=== PATIENT | female | born 1965 | race American Indian/Alaskan Native ===

== ENCOUNTER 2017-03-25 15:12 | Emergency (ER) | payer MEDICARE ==
--- NOTE | 2017-03-25 15:22 | Emergency Department Report ---
Chief Complaint: Upper Respiratory Infection Stated Complaint: FREQUENT URINATION/COUGH Time Seen by Provider: 03/25/17 15:17 - HPI History of Present Illness: PT c/o cough x 3 weeks. + urinary frequency - ROS Review of Systems: - nausea or vomiting + cough - dysuria - fever - Exam Physical Exam: PT looks well, non toxic no acute distress in triage MSE screening note: Focused history and physical exam performed. Due to findings the following was ordered: ED Disposition for MSE Condition: Stable
[2017-03-25 16:21] LABS: Bilirubin,Urine NEG (Negative); Blood,Urine NEG (Negative); Ketones,Urine NEG (Negative); Leukocyte Esterase,Urine NEG (Negative); Mucus,Urine FEW /HPF; Nitrite,Urine NEG (Negative); Protein,Urine <15 mg/dL mg/dL (Negative); RBC,Urine < 1.0 /HPF (0.0-6.0); Urobilinogen,Urine < 2.0 mg/dL (<2.0)
[2017-03-25] MEDS ORDERED: CATAPRES PO ONE (18:22)
[2017-03-25] MEDS ORDERED: TYLENOL #3 PO ONE (18:41)
--- NOTE | 2017-03-25 19:03 | XRay Report ---
FINAL REPORT EXAM: XR CHEST ROUTINE 2V HISTORY: cough x 3 weeks TECHNIQUE: Two view chest PA and lateral PRIORS: None. FINDINGS: Cardiac and mediastinal contours are unremarkable. No focal pulmonary infiltrate is identified. No pleural fluid collection seen. Pulmonary vasculature is unremarkable. IMPRESSION: Negative two-view chest
[2017-03-25 19:26] VITALS: BP 153/74
--- NOTE | 2017-03-25 23:19 | Emergency Department Report ---
Entered by MARIA T ALCAZAR, acting as scribe for JUAQUIN LEWIS PAC. - General Chief Complaint: Upper Respiratory Infection Stated Complaint: FREQUENT URINATION/COUGH Time Seen by Provider: 03/25/17 15:17 Source: patient Mode of arrival: Ambulatory Limitations: No Limitations - History of Present Illness Initial Comments: 51 y/o female with a PMHx of HTN, GERD, and Chrohn's disease presents to the ED c/o a dry cough with phlegm that began 3 weeks ago. Aggravated with deep breaths and talking, and alleviated with nothing. Denies fever, chills, congestion, rhinorrhea, sore throat, headache, dizziness, cardiac chest pain, and SOB. Denies PMHx of bronchitis and pneumonia. Denies any sick contacts. Denies any recent long travels. Notes her previously prescribed GERD medication usually relieves her symptoms, but reports the medication has not work within the last week. Patient secondary also reports urinary frequency, but she denies blurry vision, numbness, tingling, dysuria, abdominal pain, nausea, vomiting, and back pain. Denies PMHx of diabetes mellitus. Notes she was previously diagnosed with borderline diabetes. Patient states she had an urinary tract infection before and states this episode of urinary frequency does not feel similar to her past UTIs. Denies tobacco use. Allergic to metoclopramide HCl. MD Complaint: cough Onset/Timin -: week(s) Severity: mild Severity scale (0 -10): 3 Quality: burning Consistency: constant Improves With: nothing Worsens With: deep breaths Associated Symptoms: denies other symptoms, cough. denies: fever, chills, myalgias, diaphoresis, headache, rhinorrhea, nasal congestion, sore throat, stiff neck, chest pain, shortness of breath, abdominal pain, nausea, vomiting, diarrhea, dysuria, rash, confusion, right sweats, weight loss, epistaxis, hoarseness, ear pain Treatments Prior to Arrival: none - Related Data Previous Rx's Medication Instructions Recorded Last Taken Type Famotidine [Pepcid] 20 mg PO BID #60 tablet 04/16/14 Unknown Rx HYDROcodone/APAP 10-325 [[place] 1 each PO Q8H PRN #30 tablet 04/16/14 Unknown Rx 10-325 mg TAB] Mesalamine [Pentasa] 1,000 mg PO QID 30 Days 04/16/14 Unknown Rx Metoclopramide HCl [Reglan] 10 mg PO TID PRN #30 tablet 04/16/14 Unknown Rx Prednisone [Prednisone 5 mg (6-Day 5 mg PO .TAPER #1 tab.ds.pk 04/16/14 Unknown Rx Pack, 21 Tabs)] ALBUTEROL Inhaler [ProAir HFA 2 puff IH QID PRN #1 inhalation 03/05/15 Unknown Rx Inhaler] Acetamin/Codeine 120-12Mg/5 ml 5 ml PO TID PRN #40 ml 03/05/15 Unknown Rx [Tylenol/Codeine] Ibuprofen [Motrin 800 MG tab] 800 mg PO Q8HR PRN #30 tablet 03/05/15 Unknown Rx Prednisone [predniSONE 10 mg 10 mg PO .TAPER #1 tab.ds.pk 03/05/15 Unknown Rx (6-Day Pack, 21 Tabs)] Clindamycin [Clindamycin CAP] 300 mg PO Q8H #30 cap 03/14/16 Unknown Rx HYDROcodone/APAP 5-325 [[place] 1 each PO Q6HR PRN #12 tablet 03/14/16 Unknown Rx 5/325] Hydrochlorothiazide [HCTZ] 25 mg PO QDAY #30 tablet 07/03/16 Unknown Rx Ibuprofen [Motrin 800 MG tab] 800 mg PO Q8HR PRN #30 tablet 07/03/16 Unknown Rx Losartan [Cozaar] 50 mg PO QDAY #30 tablet 07/03/16 Unknown Rx Nitrofurantoin [place]/M-Cryst 100 mg PO Q12HR #10 capsule 07/03/16 Unknown Rx [Macrobid CAP] metroNIDAZOLE [Flagyl] 500 mg PO Q12HR #14 tab 07/03/16 Unknown Rx Azithromycin [Zithromax Z-ETHAN] 250 mg PO DAILY #6 tablet 03/25/17 Unknown Rx Benzonatate [Tessalon Perles] 100 mg PO Q8HR PRN #15 capsule 03/25/17 Unknown Rx Allergies Allergy/AdvReac Type Severity Reaction Status Date / Time metoclopramide HCl AdvReac "MANIC Verified 03/25/17 15:28 [From Reglan] EPISODE" ED Review of Systems Comment: All other systems reviewed and negative Constitutional: denies: chills, fever Eyes: denies: eye pain, eye discharge, vision change ENT: denies: ear pain, throat pain Respiratory: cough. denies: orthopnea, shortness of breath, SOB with exertion, SOB at rest, stridor, wheezing Cardiovascular: denies: chest pain, palpitations, dyspnea on exertion, orthopnea , edema, syncope, paroxysmal nocturnal dyspnea Endocrine: no symptoms reported Gastrointestinal: denies: abdominal pain, nausea, vomiting, diarrhea Genitourinary: frequency. denies: urgency, dysuria, hematuria, discharge, abnormal menses, dyspareunia Musculoskeletal: denies: back pain, joint swelling, arthralgia Skin: denies: rash, lesions Neurological: denies: headache, weakness, numbness, paresthesias Psychiatric: denies: anxiety, depression Hematological/Lymphatic: denies: easy bleeding, easy bruising ED Past Medical Hx - Past Medical History Previous Medical History?: Yes Hx Hypertension: Yes Hx GERD: Yes Additional medical history: CROHNS - Surgical History Past Surgical History?: Yes Hx Cholecystectomy: Yes (1986) Hx Appendectomy: Yes Additional Surgical History: Partial hysterectomy 2004. Exploratory laparotomy for Crohn's 1987. CERVICAL FUSION 2001 - Family History Family history: no significant - Social History Smoking Status: Never Smoker Substance Use Type: None - Medications Home Medications: Home Medications Medication Instructions Recorded Confirmed Last Taken Type Famotidine [Pepcid] 20 mg PO BID #60 tablet 04/16/14 Unknown Rx HYDROcodone/APAP 10-325 [[place] 1 each PO Q8H PRN #30 tablet 04/16/14 Unknown Rx 10-325 mg TAB] Mesalamine [Pentasa] 1,000 mg PO QID 30 Days 04/16/14 Unknown Rx Metoclopramide HCl [Reglan] 10 mg PO TID PRN #30 tablet 04/16/14 Unknown Rx Prednisone [Prednisone 5 mg (6-Day 5 mg PO .TAPER #1 tab.ds.pk 04/16/14 Unknown Rx Pack, 21 Tabs)] ALBUTEROL Inhaler [ProAir HFA 2 puff IH QID PRN #1 inhalation 03/05/15 Unknown Rx Inhaler] Acetamin/Codeine 120-12Mg/5 ml 5 ml PO TID PRN #40 ml 03/05/15 Unknown Rx [Tylenol/Codeine] Ibuprofen [Motrin 800 MG tab] 800 mg PO Q8HR PRN #30 tablet 03/05/15 Unknown Rx Prednisone [predniSONE 10 mg 10 mg PO .TAPER #1 tab.ds.pk 03/05/15 Unknown Rx (6-Day Pack, 21 Tabs)] Clindamycin [Clindamycin CAP] 300 mg PO Q8H #30 cap 03/14/16 Unknown Rx HYDROcodone/APAP 5-325 [[place] 1 each PO Q6HR PRN #12 tablet 03/14/16 Unknown Rx 5/325] Hydrochlorothiazide [HCTZ] 25 mg PO QDAY #30 tablet 07/03/16 Unknown Rx Ibuprofen [Motrin 800 MG tab] 800 mg PO Q8HR PRN #30 tablet 07/03/16 Unknown Rx Losartan [Cozaar] 50 mg PO QDAY #30 tablet 07/03/16 Unknown Rx Nitrofurantoin [place]/M-Cryst 100 mg PO Q12HR #10 capsule 07/03/16 Unknown Rx [Macrobid CAP] metroNIDAZOLE [Flagyl] 500 mg PO Q12HR #14 tab 07/03/16 Unknown Rx Azithromycin [Zithromax Z-ETHAN] 250 mg PO DAILY #6 tablet 03/25/17 Unknown Rx Benzonatate [Tessalon Perles] 100 mg PO Q8HR PRN #15 capsule 03/25/17 Unknown Rx ED Physical Exam - General Limitations: No Limitations General appearance: alert, in no apparent distress - Head Head exam: Present: atraumatic, normocephalic - Eye Eye exam: Present: normal appearance, PERRL, EOMI Pupils: Present: normal accommodation - ENT ENT exam: Present: normal exam, normal orophraynx, mucous membranes moist, TM's normal bilaterally, normal external ear exam - Neck Neck exam: Present: normal inspection, full ROM. Absent: tenderness, meningismus, lymphadenopathy, thyromegaly - Respiratory Respiratory exam: Present: normal lung sounds bilaterally (intermittent coughing noted on examination). Absent: respiratory distress, wheezes, rales, rhonchi, stridor, chest wall tenderness, accessory muscle use, decreased breath sounds, prolonged expiratory - Cardiovascular Cardiovascular Exam: Present: regular rate, normal rhythm, normal heart sounds. Absent: systolic murmur, diastolic murmur, rubs, gallop - GI/Abdominal GI/Abdominal exam: Present: soft, normal bowel sounds. Absent: distended, tenderness, guarding, rebound, rigid - Extremities Exam Extremities exam: Present: normal inspection, full ROM, normal capillary refill. Absent: tenderness, pedal edema, joint swelling, calf tenderness - Back Exam Back exam: Present: normal inspection, full ROM - Neurological Exam Neurological exam: Present: alert, oriented X3, normal gait - Expanded Neurological Exam Expanded Sensory exam: Upper Extremity Light Touch: Normal, Upper Extremity Pin Prick: Normal, Upper Extremity Temperature: Normal, UE 2 Point Discrimination: Normal, Lower Extremity Light Touch: Normal, Lower Extremity Pin Prick: Normal, Lower Extremity Temperature: Normal, LE 2 Point Discrimination: Normal Motor strength exam: RUE: 5, LUE: 5, RLE: 5, LLE: 5 Best Eye Response (Oscar): (4) open spontaneously Best Motor Response (Oscar): (6) obeys commands Best Verbal Response (D[place]ton): (5) oriented Dalton Total: 15 - Psychiatric Psychiatric exam: Present: normal affect, normal mood - Skin Skin exam: Present: warm, dry, intact. Absent: rash ED Course Vital Signs 03/25/17 03/25/17 03/25/17 15:18 18:14 18:34 Temperature 99.4 F Pulse Rate 89 74 74 Respiratory 17 16 Rate Blood Pressure 158/106 187/109 Blood Pressure 187/107 [Left] O2 Sat by Pulse 100 98 Oximetry 03/25/17 19:25 Temperature Pulse Rate 72 Respiratory 18 Rate Blood Pressure Blood Pressure 153/74 [Left] O2 Sat by Pulse 100 Oximetry ED Medical Decision Making - Medical Decision Making Pt was presenting with 3 weeks of chronic cough, pt has a long hx of gerd and has been on antireflux medications for years, she states that she was called in ranitidine 1.5 weeks ago without any improvement. Pt denied any chest pain, SOB , fever, or chills at this time. No hx of asthma or COPD. CXR was unremarkable , UA was unremarkable. Blood glucose was slightly elevated given that pt is borderline DM, pt told to f/u with PCP for 3 month evaluation and blood work. Pt was given clonidine 0.1 mg to help lower BP and was lowered in ER, no dizziness, blurried vision at this time. I will treat as bronchitis with doxy and tessalon arabella. Encouraged PCP follow-up in the next day for further BP management--- discharged with 157/74, in stable condition. ED Disposition Clinical Impression: Bronchitis, Pre-diabetes Hypertension Qualifiers: Hypertension type: essential hypertension Qualified Code(s): I10 - Essential ( primary) hypertension Disposition: DC- TO HOME OR SELFCARE Is pt being admited?: No Does the pt Need Aspirin: No Condition: Stable Instructions: Chronic Bronchitis (ED), Hypertension (ED) Additional Instructions: Pt instructed to take medications as given to her today. Please be advised that cough suppressant may cause drowsiness. Please follow-up with your PCP this week to further control your BP, also the cause of your frequency of urination may be from the prediabetes please go see the PCP this week. Return to the ED immediately if any chest pain, fever, chills, SOB or acutely worsening symptoms. Prescriptions: Azithromycin [Zithromax Z-ETHAN] 250 mg PO DAILY #6 tablet Benzonatate [Tessalon Perles] 100 mg PO Q8HR PRN #15 capsule PRN Reason: cough Referrals: BRENDA TAVERAS MD [Primary Care Provider] - 3-5 Days [facility] [Outside] - 3-[address] [facility] [Outside] - 3-5 Days Forms: Work/School Release Form(ED) Time of Disposition: 20:10 This documentation as recorded by the OTTONIEL obrien JASMINE,accurately reflects the service I personally performed and the decisions made by ,JUAQUIN LEWIS, PAC.
== END 2017-03-25 20:25 | disposition home or self-care (01) ==
LOC: ED 15:12
DX: J40 Bronchitis, not specified as acute or chronic (principal); I10 Essential (primary) hypertension; K21.9 Gastro-esophageal reflux disease without esophagitis; K50.90 Crohn's disease, unspecified, without complications
CPT/HCPCS: 71020; 81001; 82962

== ENCOUNTER 2017-12-17 19:28 | Emergency (ER) | payer MEDICARE ==
[2017-12-17] MEDS ORDERED: ASPIRIN PO ONE (19:58)
[2017-12-17 21:30] LABS: Basophils # (Auto) 0.1 K/mm3 (0.0-0.1); Basophils % (Auto) 0.9 % (0.0-1.8); Eosinophils # (Auto) 0.2 K/mm3 (0.0-0.4); Eosinophils % (Auto) 3.2 % (0.0-4.3); Hematocrit 39.2 % (30.3-42.9); Hemoglobin 13.2 gm/dl (10.1-14.3); Lymphocytes # (Auto) 2.8 K/mm3 (1.2-5.4); Lymphocytes % (Auto) 46.1 % (13.4-35.0); Mean Corpuscular HGB Conc 34 % (30-34); Mean Corpuscular Hemoglobin 28 pg (28-32); Mean Corpuscular Volume 84 fl (79-97); Monocytes # (Auto) 0.4 K/mm3 (0.0-0.8); Monocytes % (Auto) 7.3 % (0.0-7.3); Platelet Count 248 K/mm3 (140-440); Red Blood Count 4.65 M/mm3 (3.65-5.03); Red Cell Distribution Width 13.8 % (13.2-15.2)
[2017-12-17 21:39] LABS: BUN/Creatinine Ratio 10; Blood Urea Nitrogen 10 mg/dL (7-17); Calcium 9.1 mg/dL (8.4-10.2); Hemolysis Index 4
--- NOTE | 2017-12-18 02:32 | Emergency Department Report ---
ED Chest Pain HPI - General Chief Complaint: Chest Pain Stated Complaint: CHEST PAIN, ABD PAIN, BACK PAIN Time Seen by Provider: 12/18/17 02:32 Source: patient Mode of arrival: Ambulatory Limitations: No Limitations - History of Present Illness Initial Comments: Patient complain the chest which has been going on for over a week and also upper abdominal pain. Complaint: chest pain -: Gradual, week(s) (2) Onset: during rest Pain Location: substernal Pain Radiation: none Severity: moderate Severity scale (0 -10): 5 Quality: sharp Consistency: intermittent Improves With: nothing Worsens With: nothing re: denies: nausea, vomting Other Symptoms: denies: cough Treatments Prior to Arrival: none Aspirin use within the Past 7 Days: (1) Yes - Related Data Previous Rx's Medication Instructions Recorded Last Taken Type Famotidine [Pepcid] 20 mg PO BID #60 tablet 04/16/14 Unknown Rx HYDROcodone/APAP 10-325 [[place] 1 each PO Q8H PRN #30 tablet 04/16/14 Unknown Rx 10-325 mg TAB] Mesalamine [Pentasa] 1,000 mg PO QID 30 Days capsule.er 04/16/14 Unknown Rx Metoclopramide HCl [Reglan] 10 mg PO TID PRN #30 tablet 04/16/14 Unknown Rx Prednisone [Prednisone 5 mg (6-Day 5 mg PO .TAPER #1 tab.ds.pk 04/16/14 Unknown Rx Pack, 21 Tabs)] ALBUTEROL Inhaler [ProAir HFA 2 puff IH QID PRN #1 inhalation 03/05/15 Unknown Rx Inhaler] Acetamin/Codeine 120-12Mg/5 ml 5 ml PO TID PRN #40 ml 03/05/15 Unknown Rx [Tylenol/Codeine] Ibuprofen [Motrin 800 MG tab] 800 mg PO Q8HR PRN #30 tablet 03/05/15 Unknown Rx Prednisone [predniSONE 10 mg 10 mg PO .TAPER #1 tab.ds.pk 03/05/15 Unknown Rx (6-Day Pack, 21 Tabs)] Clindamycin [Clindamycin CAP] 300 mg PO Q8H #30 cap 03/14/16 Unknown Rx HYDROcodone/APAP 5-325 [[place] 1 each PO Q6HR PRN #12 tablet 08/24/16 Unknown Rx 5/325] Hydrochlorothiazide [HCTZ] 25 mg PO QDAY #30 tablet 07/03/16 Unknown Rx Ibuprofen [Motrin 800 MG tab] 800 mg PO Q8HR PRN #30 tablet 07/03/16 Unknown Rx Losartan [Cozaar] 50 mg PO QDAY #30 tablet 07/03/16 Unknown Rx Nitrofurantoin [place]/M-Cryst 100 mg PO Q12HR #10 capsule 07/03/16 Unknown Rx [Macrobid CAP] metroNIDAZOLE [Flagyl] 500 mg PO Q12HR #14 tab 07/03/16 Unknown Rx Azithromycin [Zithromax Z-ETHAN] 250 mg PO DAILY #6 tablet 03/25/17 Unknown Rx Benzonatate [Tessalon Perles] 100 mg PO Q8HR PRN #15 capsule 03/25/17 Unknown Rx Aspirin [Aspirin BABY CHEW TAB] 81 mg PO QDAY 30 Days #30 tab.chew 12/18/17 Unknown Rx Clonidine HCl [Kapvay] 0.1 mg PO BID #60 tab.er.12h 12/18/17 Unknown Rx Allergies Allergy/AdvReac Type Severity Reaction Status Date / Time metoclopramide HCl AdvReac "MANIC Verified 03/25/17 15:28 [From Reglan] EPISODE" Heart Score - HEART Score History: Slightly suspicious EKG: Non-specific Age: 45-65 Risk factors: 1-2 risk factors Troponin: 1-3x normal limit HEART Score: 4 - Critical Actions Critical Actions: 4-6 pts:12-16.6% risk of adverse cardiac event. Should be admitted ED Review of Systems ROS: Stated complaint: CHEST PAIN, ABD PAIN, BACK PAIN Other details as noted in HPI Comment: All other systems reviewed and negative Constitutional: denies: chills, fever Eyes: denies: eye pain ENT: denies: ear pain, dental pain Respiratory: denies: cough, shortness of breath Cardiovascular: chest pain. denies: palpitations Endocrine: no symptoms reported Gastrointestinal: abdominal pain. denies: nausea, vomiting, diarrhea Genitourinary: denies: urgency, dysuria, frequency Musculoskeletal: denies: back pain, joint swelling Skin: denies: lesions, change in color Neurological: denies: headache, weakness Psychiatric: denies: anxiety, depression Hematological/Lymphatic: denies: easy bleeding, easy bruising ED Past Medical Hx - Past Medical History Hx Hypertension: Yes Hx GERD: Yes Additional medical history: CROHNS - Surgical History Hx Cholecystectomy: Yes (1986) Hx Appendectomy: Yes Additional Surgical History: Partial hysterectomy 2004. Exploratory laparotomy for Crohn's 1987. CERVICAL FUSION 2001 - Social History Smoking Status: Never Smoker Substance Use Type: None - Medications Home Medications: Home Medications Medication Instructions Recorded Confirmed Last Taken Type Famotidine [Pepcid] 20 mg PO BID #60 tablet 04/16/14 Unknown Rx HYDROcodone/APAP 10-325 [[place] 1 each PO Q8H PRN #30 tablet 04/16/14 Unknown Rx 10-325 mg TAB] Mesalamine [Pentasa] 1,000 mg PO QID 30 Days capsule.er 04/16/14 Unknown Rx Metoclopramide HCl [Reglan] 10 mg PO TID PRN #30 tablet 04/16/14 Unknown Rx Prednisone [Prednisone 5 mg (6-Day 5 mg PO .TAPER #1 tab.ds.pk 04/16/14 Unknown Rx Pack, 21 Tabs)] ALBUTEROL Inhaler [ProAir HFA 2 puff IH QID PRN #1 inhalation 03/05/15 Unknown Rx Inhaler] Acetamin/Codeine 120-12Mg/5 ml 5 ml PO TID PRN #40 ml 03/05/15 Unknown Rx [Tylenol/Codeine] Ibuprofen [Motrin 800 MG tab] 800 mg PO Q8HR PRN #30 tablet 03/05/15 Unknown Rx Prednisone [predniSONE 10 mg 10 mg PO .TAPER #1 tab.ds.pk 03/05/15 Unknown Rx (6-Day Pack, 21 Tabs)] Clindamycin [Clindamycin CAP] 300 mg PO Q8H #30 cap 03/14/16 Unknown Rx HYDROcodone/APAP 5-325 [[place] 1 each PO Q6HR PRN #12 tablet 03/14/16 Unknown Rx 5/325] Hydrochlorothiazide [HCTZ] 25 mg PO QDAY #30 tablet 07/03/16 Unknown Rx Ibuprofen [Motrin 800 MG tab] 800 mg PO Q8HR PRN #30 tablet 07/03/16 Unknown Rx Losartan [Cozaar] 50 mg PO QDAY #30 tablet 07/03/16 Unknown Rx Nitrofurantoin [place]/M-Cryst 100 mg PO Q12HR #10 capsule 07/03/16 Unknown Rx [Macrobid CAP] metroNIDAZOLE [Flagyl] 500 mg PO Q12HR #14 tab 07/03/16 Unknown Rx Azithromycin [Zithromax Z-ETHAN] 250 mg PO DAILY #6 tablet 03/25/17 Unknown Rx Benzonatate [Tessalon Perles] 100 mg PO Q8HR PRN #15 capsule 03/25/17 Unknown Rx Aspirin [Aspirin BABY CHEW TAB] 81 mg PO QDAY 30 Days #30 tab.chew 12/18/17 Unknown Rx Clonidine HCl [Kapvay] 0.1 mg PO BID #60 tab.er.12h 12/18/17 Unknown Rx ED Physical Exam - General Limitations: No Limitations General appearance: alert, in no apparent distress - Head Head exam: Present: atraumatic, normocephalic, normal inspection - Eye Eye exam: Present: normal appearance, PERRL, EOMI Pupils: Present: normal accommodation - ENT ENT exam: Present: normal exam, normal orophraynx, mucous membranes moist - Neck Neck exam: Present: normal inspection, tenderness, full ROM - Respiratory Respiratory exam: Present: normal lung sounds bilaterally. Absent: respiratory distress, wheezes - Cardiovascular Cardiovascular Exam: Present: regular rate, normal rhythm, normal heart sounds - GI/Abdominal GI/Abdominal exam: Present: soft, normal bowel sounds. Absent: distended, tenderness, guarding, rebound - Extremities Exam Extremities exam: Present: normal inspection, full ROM, normal capillary refill - Back Exam Back exam: Present: normal inspection, full ROM - Neurological Exam Neurological exam: Present: alert, oriented X3, CN II-XII intact - Psychiatric Psychiatric exam: Present: normal affect, normal mood - Skin Skin exam: Present: warm, dry, intact, normal color. Absent: rash ED Course Vital Signs 12/17/17 12/18/17 19:52 02:46 Temperature 98.6 F Pulse Rate 75 82 Respiratory 18 Rate Blood Pressure 171/98 160/97 O2 Sat by Pulse 98 Oximetry ELTON score - Elton Score Age > 65: (0) No Aspirin use within the Past 7 Days: (1) Yes 3 or more CAD Risk Factors: (0) No 2 or more Angina events in past 24 hrs: (1) Yes Known CAD with more than 50% Stenosis: (0) No Elevated Cardiac Markers: (0) No ST Deviation Greater than 0.5mm: (0) No ELTON Score: 2 ED Medical Decision Making - Lab Data Result diagrams: 12/17/17 20:47 12/17/17 20:47 - EKG Data -: EKG Interpreted by Me EKG shows normal: sinus rhythm Rate: normal (73) - EKG Data When compared to previous EKG there are: previous EKG unavailable Interpretation: nonspecific ST-T wave hans, other (No STEMI.) - Radiology Data Radiology results: report reviewed, image reviewed - Medical Decision Making Hypertension. Atypical chest pain. Critical care attestation.: If time is entered above; I have spent that time in minutes in the direct care of this critically ill patient, excluding procedure time. ED Disposition Clinical Impression: Atypical chest pain Hypertension Qualifiers: Hypertension type: essential hypertension Qualified Code(s): I10 - Essential ( primary) hypertension Disposition: TO HOME OR SELFCARE Is pt being admited?: No Does the pt Need Aspirin: Yes Condition: Stable Instructions: Chest Pain (ED), Hypertension (ED) Additional Instructions: Follow up with your primary doctor within the next 24 hours. Return to the ED if your condition worsens. Prescriptions: Aspirin [Aspirin BABY CHEW TAB] 81 mg PO QDAY 30 Days #30 tab.chew Clonidine HCl [Kapvay] 0.1 mg PO BID #60 tab.er.12h Referrals: BRENDA TAVERAS MD [Primary Care Provider] - 3-5 Days Time of Disposition: 05:03
[2017-12-18] MEDS ORDERED: CATAPRES PO ONE (02:34)
[2017-12-18 02:46] VITALS: BP 160/97
[2017-12-18 03:35] LABS: INR 0.87 (0.87-1.13)
--- NOTE | 2017-12-18 05:30 | Cat Scan Report ---
FINAL REPORT EXAM: CT ABDOMEN PELVIS W CON HISTORY: abdominal pain TECHNIQUE: Routine axial imaging was obtained of the abdomen and pelvis following the intravenous injection of 100 cc of Omnipaque 350. Delayed imaging was obtained through the kidneys ureters and bladder. Sagittal and coronal reconstructions were reviewed. Comparison is made to the study of 01/27/2014. FINDINGS: The lung bases do not show any infiltrates or effusions. The gallbladder has been removed. The liver, biliary tree, pancreas and spleen appear normal. The adrenal glands appear normal. The kidneys enhance normally. There is no evidence of hydronephrosis. The abdominal aorta is normal in caliber. The vascular structures enhance normally. The bowel loops are normal in caliber and course. The appendix is not identified. There is no evidence of free fluid or adenopathy. The bladder appears normal. The skeletal structures do not show any acute changes. IMPRESSION: Cholecystectomy. No acute process in the abdomen and pelvis.
--- NOTE | 2017-12-18 05:30 | Cat Scan Report ---
FINAL REPORT EXAM: CT ANGIO CHEST HISTORY: Chest pain TECHNIQUE: A CT angiogram was obtained of the chest following the intravenous injection of 100 cc of Omnipaque 350. Rotational, sagittal, and coronal MIP reconstructions were reviewed. FINDINGS: The heart size is normal. The thoracic aorta is normal in caliber. There is no evidence of aortic dissection. There is no evidence of pulmonary embolus or pulmonary vascular congestion. There are no infiltrates or effusions. There is no evidence of adenopathy. The skeletal structures reveal multilevel disc degeneration in the dorsal spine. IMPRESSION: No evidence of pulmonary embolus, vascular congestion, or aortic dissection No acute process in the chest
== END 2017-12-18 05:24 | disposition home or self-care (01) ==
LOC: ED 19:28
DX: R07.89 Other chest pain (principal); I10 Essential (primary) hypertension; K21.9 Gastro-esophageal reflux disease without esophagitis; Z90.49 Acquired absence of other specified parts of digestive tract; Z90.711 Acquired absence of uterus with remaining cervical stump; Z88.8 Allergy status to other drugs, medicaments and biological substances
CPT/HCPCS: 36415; 71275; 74177; 80048; 83690; 84484; 85025; 85610; 85730; 99284; Q9967; 93005; 93010

== ENCOUNTER 2018-11-22 16:12 | Observation (INO) | payer MEDICARE ==
--- NOTE | 2018-11-22 16:24 | Emergency Department Report ---
Blank Doc - Documentation Documentation: 53 y/o female with PMH of [place] and HTN presents to ED c/o of upper chest pain worse with ambulation and radiates to Right Arm. No fever or chills, cough or sob.
[2018-11-22 16:47] LABS: Basophils # (Auto) 0.1 K/mm3 (0.0-0.1); Eosinophils # (Auto) 0.2 K/mm3 (0.0-0.4); Eosinophils % (Auto) 2.6 % (0.0-4.3); Hematocrit 37.2 % (30.3-42.9); Hemoglobin 12.3 gm/dl (10.1-14.3); Lymphocytes # (Auto) 2.4 K/mm3 (1.2-5.4); Lymphocytes % (Auto) 40.8 % (13.4-35.0); Mean Corpuscular HGB Conc 33 % (30-34); Mean Corpuscular Volume 86 fl (79-97); Monocytes # (Auto) 0.4 K/mm3 (0.0-0.8); Monocytes % (Auto) 7.1 % (0.0-7.3); Platelet Count 242 K/mm3 (140-440); Red Blood Count 4.35 M/mm3 (3.65-5.03); Red Cell Distribution Width 14.3 % (13.2-15.2)
[2018-11-22 17:15] LABS: Alanine Aminotransferase 16 units/L (7-56); Albumin 3.8 g/dL (3.9-5); BUN/Creatinine Ratio 10; Blood Urea Nitrogen 9 mg/dL (7-17); Calcium 8.9 mg/dL (8.4-10.2); Hemolysis Index 6
[2018-11-22] MEDS ORDERED: BABY ASPIRIN PO ONE (18:27)
--- NOTE | 2018-11-22 18:27 | Emergency Department Report ---
ED Chest Pain HPI - General Chief Complaint: Chest Pain Stated Complaint: CHEST PAIN/TIGHTNESS RT HAND Time Seen by Provider: 11/22/18 16:21 Source: patient Mode of arrival: Ambulatory Limitations: No Limitations - History of Present Illness Initial Comments: Patient complained of chest pain which started at 2 PM today associated with mild shortness of breath on exertion. Complaint: chest pain -: Sudden, hour(s) (4) Onset: during rest Pain Location: substernal Pain Radiation: none Severity: moderate Severity scale (0 -10): 6 Quality: tightness, sharp Consistency: constant Improves With: nothing Worsens With: nothing re: dyspnea Treatments Prior to Arrival: none Aspirin use within the Past 7 Days: (0) No - Related Data On Oral Contraceptives: No Previous Rx's Medication Instructions Recorded Last Taken Type Famotidine [Pepcid] 20 mg PO BID #60 tablet 04/16/14 Unknown Rx HYDROcodone/APAP 10-325 [[place] 1 each PO Q8H PRN #30 tablet 04/16/14 Unknown Rx 10-325 mg TAB] Mesalamine [Pentasa] 1,000 mg PO QID 30 Days capsule.er 04/16/14 Unknown Rx Metoclopramide HCl [Reglan] 10 mg PO TID PRN #30 tablet 04/16/14 Unknown Rx Prednisone [Prednisone 5 mg (6-Day 5 mg PO .TAPER #1 tab.ds.pk 04/16/14 Unknown Rx Pack, 21 Tabs)] ALBUTEROL Inhaler (OR & NICU) 2 puff IH QID PRN #1 inhalation 03/05/15 Unknown Rx [ProAir HFA Inhaler] Acetamin/Codeine 120-12Mg/5 ml 5 ml PO TID PRN #40 ml 03/05/15 Unknown Rx [Tylenol/Codeine] Ibuprofen [Motrin 800 MG tab] 800 mg PO Q8HR PRN #30 tablet 03/05/15 Unknown Rx Prednisone [predniSONE 10 mg 10 mg PO .TAPER #1 tab.ds.pk 03/05/15 Unknown Rx (6-Day Pack, 21 Tabs)] Clindamycin [Clindamycin CAP] 300 mg PO Q8H #30 cap 03/14/16 Unknown Rx HYDROcodone/APAP 5-325 [[place] 1 each PO Q6HR PRN #12 tablet 08/24/16 Unknown Rx 5/325] Ibuprofen [Motrin 800 MG tab] 800 mg PO Q8HR PRN #30 tablet 07/03/16 Unknown Rx Losartan [Cozaar] 50 mg PO QDAY #30 tablet 07/03/16 Unknown Rx Nitrofurantoin [place]/M-Cryst 100 mg PO Q12HR #10 capsule 07/03/16 Unknown Rx [Macrobid CAP] hydroCHLOROthiazide [HCTZ] 25 mg PO QDAY #30 tablet 07/03/16 Unknown Rx metroNIDAZOLE [Flagyl] 500 mg PO Q12HR #14 tab 07/03/16 Unknown Rx Azithromycin [Zithromax Z-ETHAN] 250 mg PO DAILY #6 tablet 03/25/17 Unknown Rx Benzonatate [Tessalon Perles] 100 mg PO Q8HR PRN #15 capsule 03/25/17 Unknown Rx Aspirin [Aspirin BABY CHEW TAB] 81 mg PO QDAY 30 Days #30 tab.chew 12/18/17 Unknown Rx Clonidine HCl [Kapvay] 0.1 mg PO BID #60 tab.er.12h 12/18/17 Unknown Rx Allergies Allergy/AdvReac Type Severity Reaction Status Date / Time metoclopramide HCl AdvReac "MANIC Verified 03/25/17 15:28 [From Reglan] EPISODE" Heart Score - HEART Score History: Moderately suspicious EKG: Non-specific Age: 45-65 Risk factors: 1-2 risk factors Troponin: < normal limit HEART Score: 4 - Critical Actions Critical Actions: 4-6 pts:12-16.6% risk of adverse cardiac event. Should be admitted ED Review of Systems ROS: Stated complaint: CHEST PAIN/TIGHTNESS RT HAND Other details as noted in HPI Comment: All other systems reviewed and negative Constitutional: denies: chills, fever Eyes: denies: eye pain, eye discharge, vision change ENT: denies: ear pain, throat pain Respiratory: SOB with exertion. denies: cough, shortness of breath, wheezing Cardiovascular: chest pain. denies: palpitations Endocrine: no symptoms reported Gastrointestinal: denies: abdominal pain, nausea, diarrhea Genitourinary: denies: urgency, dysuria, discharge Musculoskeletal: denies: back pain, joint swelling, arthralgia Skin: denies: rash, lesions Neurological: denies: headache, weakness, paresthesias Psychiatric: denies: anxiety, depression Hematological/Lymphatic: denies: easy bleeding, easy bruising ED Past Medical Hx - Past Medical History Hx Hypertension: Yes Hx GERD: Yes Additional medical history: CROHNS - Surgical History Hx Cholecystectomy: Yes (1986) Hx Appendectomy: Yes Additional Surgical History: Partial hysterectomy 2004. Exploratory laparotomy for Crohn's 1987. CERVICAL FUSION 2001 - Social History Smoking Status: Never Smoker Substance Use Type: None - Medications Home Medications: Home Medications Medication Instructions Recorded Confirmed Last Taken Type Famotidine [Pepcid] 20 mg PO BID #60 tablet 04/16/14 Unknown Rx HYDROcodone/APAP 10-325 [[place] 1 each PO Q8H PRN #30 tablet 04/16/14 Unknown Rx 10-325 mg TAB] Mesalamine [Pentasa] 1,000 mg PO QID 30 Days capsule.er 04/16/14 Unknown Rx Metoclopramide HCl [Reglan] 10 mg PO TID PRN #30 tablet 04/16/14 Unknown Rx Prednisone [Prednisone 5 mg (6-Day 5 mg PO .TAPER #1 tab.ds.pk 04/16/14 Unknown Rx Pack, 21 Tabs)] ALBUTEROL Inhaler (OR & NICU) 2 puff IH QID PRN #1 inhalation 03/05/15 Unknown Rx [ProAir HFA Inhaler] Acetamin/Codeine 120-12Mg/5 ml 5 ml PO TID PRN #40 ml 03/05/15 Unknown Rx [Tylenol/Codeine] Ibuprofen [Motrin 800 MG tab] 800 mg PO Q8HR PRN #30 tablet 03/05/15 Unknown Rx Prednisone [predniSONE 10 mg 10 mg PO .TAPER #1 tab.ds.pk 03/05/15 Unknown Rx (6-Day Pack, 21 Tabs)] Clindamycin [Clindamycin CAP] 300 mg PO Q8H #30 cap 03/14/16 Unknown Rx HYDROcodone/APAP 5-325 [[place] 1 each PO Q6HR PRN #12 tablet 03/14/16 Unknown Rx 5/325] Ibuprofen [Motrin 800 MG tab] 800 mg PO Q8HR PRN #30 tablet 07/03/16 Unknown Rx Losartan [Cozaar] 50 mg PO QDAY #30 tablet 07/03/16 Unknown Rx Nitrofurantoin [place]/M-Cryst 100 mg PO Q12HR #10 capsule 07/03/16 Unknown Rx [Macrobid CAP] hydroCHLOROthiazide [HCTZ] 25 mg PO QDAY #30 tablet 07/03/16 Unknown Rx metroNIDAZOLE [Flagyl] 500 mg PO Q12HR #14 tab 07/03/16 Unknown Rx Azithromycin [Zithromax Z-ETHAN] 250 mg PO DAILY #6 tablet 03/25/17 Unknown Rx Benzonatate [Tessalon Perles] 100 mg PO Q8HR PRN #15 capsule 03/25/17 Unknown Rx Aspirin [Aspirin BABY CHEW TAB] 81 mg PO QDAY 30 Days #30 tab.chew 12/18/17 Unknown Rx Clonidine HCl [Kapvay] 0.1 mg PO BID #60 tab.er.12h 12/18/17 Unknown Rx ED Physical Exam - General Limitations: No Limitations General appearance: alert, in no apparent distress - Head Head exam: Present: atraumatic, normocephalic - Eye Eye exam: Present: normal appearance, PERRL, EOMI Pupils: Present: normal accommodation - ENT ENT exam: Present: normal exam, mucous membranes moist - Neck Neck exam: Present: normal inspection, full ROM. Absent: tenderness - Respiratory Respiratory exam: Present: normal lung sounds bilaterally. Absent: respiratory distress - Cardiovascular Cardiovascular Exam: Present: regular rate, normal rhythm. Absent: systolic murmur, diastolic murmur, rubs, gallop - GI/Abdominal GI/Abdominal exam: Present: soft, normal bowel sounds. Absent: distended, tenderness, guarding, rebound - Rectal Rectal exam: Present: deferred - Extremities Exam Extremities exam: Present: normal inspection, full ROM, normal capillary refill - Back Exam Back exam: Present: normal inspection, full ROM - Neurological Exam Neurological exam: Present: alert, oriented X3 - Psychiatric Psychiatric exam: Present: normal affect, normal mood - Skin Skin exam: Present: warm, dry, intact, normal color. Absent: rash ED Course Vital Signs 11/22/18 16:22 Temperature 98.2 F Pulse Rate 70 Respiratory 16 Rate Blood Pressure 184/91 O2 Sat by Pulse 100 Oximetry - Consultations Consultation #1: 11/22/18 19:01 I called [facility] and spoke with Dr. Donahue who is the [facility] physician crm solution architect. She wants patient to be admitted at [facility] for chest pain workup and evaluation. Consultation #2: 11/22/18 19:[address] Ramirez was notified regarding this admission. KENDY score - Kendy Score Age > 65: (0) No Aspirin use within the Past 7 Days: (0) No 3 or more CAD Risk Factors: (0) No 2 or more Angina events in past 24 hrs: (1) Yes Known CAD with more than 50% Stenosis: (0) No Elevated Cardiac Markers: (0) No ST Deviation Greater than 0.5mm: (0) No KENDY Score: 1 ED Medical Decision Making - Lab Data Result diagrams: 11/22/18 16:27 11/22/18 16:27 Lab Results 11/22/18 11/22/18 11/22/18 Range/Units 16:27 16:27 16:27 WBC 5.9 (4.5-11.0) K/mm3 RBC 4.35 (3.65-5.03) M/mm3 Hgb 12.3 (10.1-14.3) gm/dl Hct 37.2 (30.3-42.9) % MCV 86 (79-97) fl MCH 28 (28-32) pg MCHC 33 (30-34) % RDW 14.3 (13.2-15.2) % Plt Count 242 (140-440) K/mm3 Lymph % (Auto) 40.8 H (13.4-35.0) % [place] % (Auto) 7.1 (0.0-7.3) % Eos % (Auto) 2.6 (0.0-4.3) % Baso % (Auto) 1.0 (0.0-1.8) % Lymph # 2.4 (1.2-5.4) K/mm3 [place] # 0.4 (0.0-0.8) K/mm3 Eos # 0.2 (0.0-0.4) K/mm3 Baso # 0.1 (0.0-0.1) K/mm3 Seg Neutrophils % 48.5 (40.0-70.0) % Seg Neutrophils # 2.9 (1.8-7.7) K/mm3 Sodium 138 (137-145) mmol/L Potassium 3.8 (3.6-5.0) mmol/L Chloride 100.6 (98-107) mmol/L Carbon Dioxide 28 (22-30) mmol/L Anion Gap 13 mmol/L BUN 9 (7-17) mg/dL Creatinine 0.9 (0.7-1.2) mg/dL Estimated GFR > 60 ml/min BUN/Creatinine Ratio 10 % Glucose 99 (65-100) mg/dL Calcium 8.9 (8.4-10.2) mg/dL Total Bilirubin 0.30 (0.1-1.2) mg/dL AST 14 (5-40) units/L ALT 16 (7-56) units/L Alkaline Phosphatase 57 (35-129) units/L Troponin T < 0.010 (0.00-0.029) ng/mL NT-Pro-B Natriuret Pep 140.2 (0-900) pg/mL Total Protein 6.6 (6.3-8.2) g/dL Albumin 3.8 L (3.9-5) g/dL Albumin/Globulin Ratio 1.4 % Lipase 20 (13-60) units/L - EKG Data -: EKG Interpreted by Md EKG shows normal: sinus rhythm Rate: normal (77) - EKG Data When compared to previous EKG there are: previous EKG unavailable Interpretation: nonspecific ST-T wave hans 11/22/18 19:01 No STEMI. Critical care attestation.: If time is entered above; I have spent that time in minutes in the direct care of this critically ill patient, excluding procedure time. ED Disposition Clinical Impression: Chest pain Qualifiers: Chest pain type: unspecified Qualified Code(s): R07.9 - Chest pain, unspecified Hypertension Qualifiers: Hypertension type: unspecified Qualified Code(s): I10 - Essential (primary) hypertension Disposition: OP ADMIT IP TO THIS HOSP Is pt being admited?: Yes Does the pt Need Aspirin: Yes Condition: Stable Instructions: Chest Pain (ED), Hypertension (ED) Referrals: PRIMARY CARE, [Primary Care Provider] - 3-5 Days Time of Disposition: 19:03
--- NOTE | 2018-11-22 18:39 | XRay Report ---
PROCEDURE: Chest. TECHNIQUE: PA and lateral views. HISTORY: Chest pain. COMPARISONS: Chest 03/25/2017. FINDINGS: The heart size is normal. There is moderate tortuosity of the thoracic aorta. The lungs are clear and well expanded. There are no pleural effusions. The soft tissues are unremarkable. There is an anteri or fusion plate in the lower cervical spine. IMPRESSION: No evidence of acute cardiopulmonary disease. This document is electronically signed by Mp Irvin MD., Nov 22 2018 06:37:18 PM ET
[2018-11-22] MEDS: NITROSTAT SL PRN (18:59)
[2018-11-22] MEDS ORDERED: MORPHINE IV ONE ×2 (19:04→19:07)
[2018-11-22] MEDS ORDERED: ZOFRAN IV ONE (19:04)
[2018-11-22] MEDS ORDERED: PERCOCET 5/325 PO PRN (19:49)
[2018-11-22] MEDS ORDERED: MORPHINE IV PRN (19:49)
[2018-11-22] MEDS ORDERED: ALUM-MAG HYDROX-SIMETH 200-200-20MG/5ML PO PRN (19:49)
[2018-11-22] MEDS ORDERED: APRESOLINE IV PRN (19:49)
[2018-11-22] MEDS ORDERED: ZOFRAN IV PRN (19:49)
[2018-11-22] MEDS ORDERED: SODIUM CHLORIDE FLUSH SYRINGE 10 ML IV PRN ×2 (19:49)
--- NOTE | 2018-11-22 20:20 | History and Physical Report ---
<RACHID SOLIZ - Last Filed: 11/23/18 00:19> History of Present Illness Date of examination: 11/22/18 Date of admission: 11/22/18 19:49 Chief complaint: Chest pain History of present illness: Pt is a 53 year old female with PMHx of hypertension and crohn disease who came to the ER with c/o chest pain. Patient states that the chest pain started today around 2 pt, it is a constant shard pain, located in the midsternal area, associated with SOB, pt states that the pain radiates to her right arm causing nubness in weakness of her right arm. Pt denies prior history of chest pain, she states she only has been taking one Clonidine per night for hypertension, she states that she stopped taking her losartan/HCTZ since she heard that it can cause malignancy. In the ER pt's BP was 184/91, her EKG showed non-specific T abnormalities, her first cardiac enzyme are negative, pt is placed in observation for further evaluation and treatment of her chest pain. Past History Past Medical History: hypertension, other (Crohn dz) Past Surgical History: No surgical history Social history: no significant social history Family history: no significant family history Medications and Allergies Allergies Allergy/AdvReac Type Severity Reaction Status Date / Time metoclopramide HCl AdvReac "MANIC Verified 03/25/17 15:28 [From [facility]] EPISODE" Home Medications Medication Instructions Recorded Confirmed Last Taken Type Clonidine HCl [Kapvay] 0.1 mg PO BID #60 tab.er.12h 12/18/17 11/22/18 Unknown Rx Active Meds: Active Medications Acetaminophen (Tylenol) 650 mg PO Q4H PRN PRN Reason: Pain MILD(1-3)/Fever >100.5/NGUYEN Al Hydrox/Mg Hydrox/Simethicone (Alum-Mag Hydrox-Simeth [id number]/5ml) 30 ml PO Q4H PRN PRN Reason: Indigestion Amlodipine Besylate (Norvasc) 5 mg PO QDAY [facility] Aspirin (Ecotrin) 325 mg PO QDAY [facility] Famotidine (Pepcid) 20 mg IV BID [facility] Hydralazine HCl (Apresoline) 10 mg IV Q6HR PRN PRN Reason: FOR SBP > target Hydrochlorothiazide (Hctz) 25 mg PO QDAY [place] Morphine Sulfate (Morphine) 2 mg IV Q4H PRN PRN Reason: Pain, Moderate (4-6) Nitroglycerin (Nitrostat) 0.4 mg SL .Q5MIN PRN PRN Reason: Chest Pain Last Admin: 11/22/18 18:59 Dose: 0.4 mg Documented by: Ondansetron HCl (Zofran) 4 mg IV Q8H PRN PRN Reason: Nausea And Vomiting Oxycodone/Acetaminophen (Percocet 5/325) 1 tab PO Q6H PRN PRN Reason: Pain, Moderate (4-6) Senna (Senokot) 8.6 mg PO Q12HR [place] Sodium Chloride (Sodium Chloride Flush Syringe 10 Ml) 10 ml IV BID [place] Sodium Chloride (Sodium Chloride Flush Syringe 10 Ml) 10 ml IV PRN PRN PRN Reason: LINE FLUSH Sodium Chloride (Sodium Chloride Flush Syringe 10 Ml) 10 ml IV PRN PRN PRN Reason: LINE FLUSH Review of Systems Cardiovascular: chest pain, shortness of breath Exam - Constitutional Vitals: Temp Pulse Resp BP Pulse Ox 98.2 F 70 16 185/102 100 11/22/18 16:22 11/22/18 18:59 11/22/18 16:22 11/22/18 18:59 11/22/18 16:22 General appearance: Present: no acute distress - EENT Eyes: Present: PERRL, EOM intact ENT: hearing intact - Neck Neck: Present: supple, normal ROM - Respiratory Respiratory effort: normal Respiratory: bilateral: CTA - Cardiovascular Rhythm: regular Heart Sounds: Present: S1 & S2 - Extremities Extremities: no ischemia, No edema, Full ROM Peripheral Pulses: within normal limits - Abdominal General gastrointestinal: Present: deferred - Rectal Rectal Exam: deferred - Integumentary Integumentary: Present: clear, warm - Musculoskeletal Musculoskeletal: strength equal bilaterally - Psychiatric Psychiatric: cooperative - Neurologic Neurologic: moves all extremities Results - Labs CBC & Chem 7: 11/22/18 16:27 11/22/18 16:27 Labs: Laboratory Last Values WBC 5.9 K/mm3 (4.5-11.0) 11/22/18 16:27 RBC 4.35 M/mm3 (3.65-5.03) 11/22/18 16:27 Hgb 12.3 gm/dl (10.1-14.3) 11/22/18 16:27 Hct 37.2 % (30.3-42.9) 11/22/18 16:27 MCV 86 fl (79-97) 11/22/18 16:27 MCH 28 pg (28-32) 11/22/18 16:27 MCHC 33 % (30-34) 11/22/18 16:27 RDW 14.3 % (13.2-15.2) 11/22/18 16:27 Plt Count 242 K/mm3 (140-440) 11/22/18 16:27 Lymph % (Auto) 40.8 % (13.4-35.0) H 11/22/18 16:27 [place] % (Auto) 7.1 % (0.0-7.3) 11/22/18 16:27 Eos % (Auto) 2.6 % (0.0-4.3) 11/22/18 16:27 Baso % (Auto) 1.0 % (0.0-1.8) 11/22/18 16:27 Lymph # 2.4 K/mm3 (1.2-5.4) 11/22/18 16:27 [place] # 0.4 K/mm3 (0.0-0.8) 11/22/18 16:27 Eos # 0.2 K/mm3 (0.0-0.4) 11/22/18 16:27 Baso # 0.1 K/mm3 (0.0-0.1) 11/22/18 16:27 Seg Neutrophils % 48.5 % (40.0-70.0) 11/22/18 16:27 Seg Neutrophils # 2.9 K/mm3 (1.8-7.7) 11/22/18 16:27 Sodium 138 mmol/L (137-145) 11/22/18 16:27 Potassium 3.8 mmol/L (3.6-5.0) 11/22/18 16:27 Chloride 100.6 mmol/L (98-107) 11/22/18 16:27 Carbon Dioxide 28 mmol/L (22-30) 11/22/18 16:27 Anion Gap 13 mmol/L 11/22/18 16:27 BUN 9 mg/dL (7-17) 11/22/18 16:27 Creatinine 0.9 mg/dL (0.7-1.2) 11/22/18 16:27 Estimated GFR > 60 ml/min 11/22/18 16:27 BUN/Creatinine Ratio 10 % 11/22/18 16:27 Glucose 99 mg/dL (65-100) 11/22/18 16:27 Calcium 8.9 mg/dL (8.4-10.2) 11/22/18 16:27 Total Bilirubin 0.30 mg/dL (0.1-1.2) 11/22/18 16:27 AST 14 units/L (5-40) 11/22/18 16:27 ALT 16 units/L (7-56) 11/22/18 16:27 Alkaline Phosphatase 57 units/L (35-129) 11/22/18 16:27 Troponin T < 0.010 ng/mL (0.00-0.029) 11/22/18 16:27 NT-Pro-B Natriuret Pep 140.2 pg/mL (0-900) 11/22/18 16:27 Total Protein 6.6 g/dL (6.3-8.2) 11/22/18 16:27 Albumin 3.8 g/dL (3.9-5) L 11/22/18 16:27 Albumin/Globulin Ratio 1.4 % 11/22/18 16:27 Lipase 20 units/L (13-60) 11/22/18 16:27 Assessment and Plan Assessment and plan: 1. Chest pain r/o ACS 2. Accelerated Hypertension 3. H/o crohn disease Plan Admit to [facility] Continue CE q6hr x 2 more Monitor vital signs Continue home meds Clonidine PRN for SBP >160 Stress test in am Plan of care d/w pt, voiced understading Pt's condition and plan of care was d/w Dr Pinedo Advance Directives: Yes VTE prophylaxis?: Mechanical Plan of care discussed with patient/family: Yes <PRAKASH PINEDO Last Filed: 11/23/18 03:12> History of Present Illness Date of admission: 11/22/18 19:49 Medications and Allergies Active Meds: Active Medications Acetaminophen (Tylenol) 650 mg PO Q4H PRN PRN Reason: Pain MILD(1-3)/Fever >100.5/NGUYEN Last Admin: 11/22/18 22:23 Dose: 650 mg Documented by: Al Hydrox/Mg Hydrox/Simethicone (Alum-Mag Hydrox-Simeth [id number]/5ml) 30 ml PO Q4H PRN PRN Reason: Indigestion Amlodipine Besylate (Norvasc) 5 mg PO QDAY [facility] Aspirin (Ecotrin) 325 mg PO QDAY [facility] Famotidine (Pepcid) 20 mg IV BID [facility] Last Admin: 11/22/18 22:05 Dose: Not Given Documented by: Hydralazine HCl (Apresoline) 10 mg IV Q6HR PRN PRN Reason: FOR SBP > target Hydrochlorothiazide (Hctz) 25 mg PO QDAY [facility] Morphine Sulfate (Morphine) 2 mg IV Q4H PRN PRN Reason: Pain, Moderate (4-6) Nitroglycerin (Nitrostat) 0.4 mg SL .Q5MIN PRN PRN Reason: Chest Pain Last Admin: 11/22/18 18:59 Dose: 0.4 mg Documented by: Ondansetron HCl (Zofran) 4 mg IV Q8H PRN PRN Reason: Nausea And Vomiting Oxycodone/Acetaminophen (Percocet 5/325) 1 tab PO Q6H PRN PRN Reason: Pain, Moderate (4-6) Senna (Senokot) 8.6 mg PO Q12HR [facility] Last Admin: 11/22/18 22:04 Dose: Not Given Documented by: Sodium Chloride (Sodium Chloride Flush Syringe 10 Ml) 10 ml IV BID [facility] Last Admin: 11/22/18 22:24 Dose: 10 ml Documented by: Sodium Chloride (Sodium Chloride Flush Syringe 10 Ml) 10 ml IV PRN PRN PRN Reason: LINE FLUSH Sodium Chloride (Sodium Chloride Flush Syringe 10 Ml) 10 ml IV PRN PRN PRN Reason: LINE FLUSH Exam - Constitutional Vitals: Temp Pulse Resp BP Pulse Ox 98.3 F 66 18 143/78 100 11/22/18 21:40 11/22/18 21:40 11/22/18 22:39 11/22/18 21:40 11/22/18 21:40 Results - Labs CBC & Chem 7: 11/22/18 16:27 11/22/18 16:27 Labs: Laboratory Last Values WBC 5.9 K/mm3 (4.5-11.0) 11/22/18 16:27 RBC 4.35 M/mm3 (3.65-5.03) 11/22/18 16:27 Hgb 12.3 gm/dl (10.1-14.3) 11/22/18 16:27 Hct 37.2 % (30.3-42.9) 11/22/18 16:27 MCV 86 fl (79-97) 11/22/18 16:27 MCH 28 pg (28-32) 11/22/18 16:27 MCHC 33 % (30-34) 11/22/18 16:27 RDW 14.3 % (13.2-15.2) 11/22/18 16:27 Plt Count 242 K/mm3 (140-440) 11/22/18 16:27 Lymph % (Auto) 40.8 % (13.4-35.0) H 11/22/18 16:27 [place] % (Auto) 7.1 % (0.0-7.3) 11/22/18 16:27 Eos % (Auto) 2.6 % (0.0-4.3) 11/22/18 16:27 Baso % (Auto) 1.0 % (0.0-1.8) 11/22/18 16:27 Lymph # 2.4 K/mm3 (1.2-5.4) 11/22/18 16:27 [place] # 0.4 K/mm3 (0.0-0.8) 11/22/18 16:27 Eos # 0.2 K/mm3 (0.0-0.4) 11/22/18 16:27 Baso # 0.1 K/mm3 (0.0-0.1) 11/22/18 16:27 Seg Neutrophils % 48.5 % (40.0-70.0) 11/22/18 16:27 Seg Neutrophils # 2.9 K/mm3 (1.8-7.7) 11/22/18 16:27 Sodium 138 mmol/L (137-145) 11/22/18 16:27 Potassium 3.8 mmol/L (3.6-5.0) 11/22/18 16:27 Chloride 100.6 mmol/L (98-107) 11/22/18 16:27 Carbon Dioxide 28 mmol/L (22-30) 11/22/18 16:27 Anion Gap 13 mmol/L 11/22/18 16:27 BUN 9 mg/dL (7-17) 11/22/18 16:27 Creatinine 0.9 mg/dL (0.7-1.2) 11/22/18 16:27 Estimated GFR > 60 ml/min 11/22/18 16:27 BUN/Creatinine Ratio 10 % 11/22/18 16:27 Glucose 99 mg/dL (65-100) 11/22/18 16:27 Hemoglobin A1c 6.1 % (4-6) H 11/22/18 20:11 Calcium 8.9 mg/dL (8.4-10.2) 11/22/18 16:27 Total Bilirubin 0.30 mg/dL (0.1-1.2) 11/22/18 16:27 AST 14 units/L (5-40) 11/22/18 16:27 ALT 16 units/L (7-56) 11/22/18 16:27 Alkaline Phosphatase 57 units/L (35-129) 11/22/18 16:27 Troponin T < 0.010 ng/mL (0.00-0.029) 11/22/18 22:42 NT-Pro-B Natriuret Pep 140.2 pg/mL (0-900) 11/22/18 16:27 Total Protein 6.6 g/dL (6.3-8.2) 11/22/18 16:27 Albumin 3.8 g/dL (3.9-5) L 11/22/18 16:27 Albumin/Globulin Ratio 1.4 % 11/22/18 16:27 Triglycerides 96 mg/dL (2-149) 11/22/18 20:11 Cholesterol 152 mg/dL (50-199) 11/22/18 20:11 LDL Cholesterol Direct 96 mg/dL (50-130) 11/22/18 20:11 HDL Cholesterol 58 mg/dL (40-59) 11/22/18 20:11 Cholesterol/HDL Ratio 2.62 % 11/22/18 20:11 Lipase 20 units/L (13-60) 11/22/18 16:27 Assessment and Plan Assessment and plan: 53-year-old history of hypertension, Crohn's comes emergency room with complaints of chest pain located in the epigastric area which she described as a pressure-like sensation relieved with nitroglycerin, and associated with shortness of breath. Patient to stop taking her losartan recently however she is still on clonidine. Admit for hypertensive urgency, chest pain, evaluate stress tests, I be a drowsiness needed. Patient seen and examined with nurse practitioner, physical exam is benign
[2018-11-22 20:59] LABS: Chol/HDL Ratio 2.62 %
[2018-11-22] MEDS: SENOKOT PO SCH (22:04)
[2018-11-22] MEDS: PEPCID IV SCH (22:05)
[2018-11-22] MEDS: TYLENOL PO PRN (22:23)
[2018-11-22] MEDS: SODIUM CHLORIDE FLUSH SYRINGE 10 ML IV SCH (22:24)
[2018-11-23] MEDS: NITROSTAT SL PRN (05:22)
[2018-11-23 06:10] LABS: Creatine Kinase MB < 1.0 ng/mL (0.0-4.0)
[2018-11-23 10:11] LABS: Creatine Kinase MB < 1.0 ng/mL (0.0-4.0)
--- NOTE | 2018-11-23 10:53 | Progress Note ---
Assessment and Plan Assessment and plan: Chest pain. Continue chest pain protocol. Monitor cardiac isoenzymes. Plans for echocardiogram and stress test in a.m. Hypertension. Resume home antihypertensive medications. History of Crohn's disease. History Interval history: No new issues overnight. Hospitalist Physical - Constitutional Vitals: Temp Pulse Resp BP Pulse Ox 98.8 F 61 12 169/89 97 11/23/18 08:45 11/23/18 08:45 11/23/18 08:45 11/23/18 08:45 11/23/18 08:45 General appearance: Present: no acute distress - EENT Eyes: Present: PERRL, EOM intact ENT: hearing intact, clear oral mucosa, dentition normal - Neck Neck: Present: supple, normal ROM - Respiratory Respiratory effort: normal Respiratory: bilateral: CTA - Cardiovascular Rhythm: regular Heart Sounds: Present: S1 & S2. Absent: gallop, rub - Extremities Extremities: no ischemia, No edema, Full ROM - Abdominal General gastrointestinal: soft, non-tender, non-distended, normal bowel sounds - Integumentary Integumentary: Present: clear, warm, dry - Neurologic Neurologic: CNII-XII intact, moves all extremities Results - Labs CBC & Chem 7: 11/22/18 16:27 11/22/18 16:27 Labs: Laboratory Last Values WBC 5.9 K/mm3 (4.5-11.0) 11/22/18 16:27 RBC 4.35 M/mm3 (3.65-5.03) 11/22/18 16:27 Hgb 12.3 gm/dl (10.1-14.3) 11/22/18 16:27 Hct 37.2 % (30.3-42.9) 11/22/18 16:27 MCV 86 fl (79-97) 11/22/18 16:27 MCH 28 pg (28-32) 11/22/18 16:27 MCHC 33 % (30-34) 11/22/18 16:27 RDW 14.3 % (13.2-15.2) 11/22/18 16:27 Plt Count 242 K/mm3 (140-440) 11/22/18 16:27 Lymph % (Auto) 40.8 % (13.4-35.0) H 11/22/18 16:27 Hodgeman % (Auto) 7.1 % (0.0-7.3) 11/22/18 16:27 Eos % (Auto) 2.6 % (0.0-4.3) 11/22/18 16:27 Baso % (Auto) 1.0 % (0.0-1.8) 11/22/18 16:27 Lymph # 2.4 K/mm3 (1.2-5.4) 11/22/18 16:27 Hodgeman # 0.4 K/mm3 (0.0-0.8) 11/22/18 16:27 Eos # 0.2 K/mm3 (0.0-0.4) 11/22/18 16:27 Baso # 0.1 K/mm3 (0.0-0.1) 11/22/18 16:27 Seg Neutrophils % 48.5 % (40.0-70.0) 11/22/18 16:27 Seg Neutrophils # 2.9 K/mm3 (1.8-7.7) 11/22/18 16:27 Sodium 138 mmol/L (137-145) 11/22/18 16:27 Potassium 3.8 mmol/L (3.6-5.0) 11/22/18 16:27 Chloride 100.6 mmol/L (98-107) 11/22/18 16:27 Carbon Dioxide 28 mmol/L (22-30) 11/22/18 16:27 Anion Gap 13 mmol/L 11/22/18 16:27 BUN 9 mg/dL (7-17) 11/22/18 16:27 Creatinine 0.9 mg/dL (0.7-1.2) 11/22/18 16:27 Estimated GFR > 60 ml/min 11/22/18 16:27 BUN/Creatinine Ratio 10 % 11/22/18 16:27 Glucose 99 mg/dL (65-100) 11/22/18 16:27 Hemoglobin A1c 6.1 % (4-6) H 11/22/18 20:11 Calcium 8.9 mg/dL (8.4-10.2) 11/22/18 16:27 Total Bilirubin 0.30 mg/dL (0.1-1.2) 11/22/18 16:27 AST 14 units/L (5-40) 11/22/18 16:27 ALT 16 units/L (7-56) 11/22/18 16:27 Alkaline Phosphatase 57 units/L (35-129) 11/22/18 16:27 Total Creatine Kinase 123 units/L (30-135) 11/23/18 09:28 CK-MB (CK-2) < 1.0 ng/mL (0.0-4.0) 11/23/18 09:28 CK-MB (CK-2) Rel Index 0.8 (0-4) 11/23/18 09:28 Troponin T < 0.010 ng/mL (0.00-0.029) 11/23/18 05:32 NT-Pro-B Natriuret Pep 140.2 pg/mL (0-900) 11/22/18 16:27 Total Protein 6.6 g/dL (6.3-8.2) 11/22/18 16:27 Albumin 3.8 g/dL (3.9-5) L 11/22/18 16:27 Albumin/Globulin Ratio 1.4 % 11/22/18 16:27 Triglycerides 96 mg/dL (2-149) 11/22/18 20:11 Cholesterol 152 mg/dL (50-199) 11/22/18 20:11 LDL Cholesterol Direct 96 mg/dL (50-130) 11/22/18 20:11 HDL Cholesterol 58 mg/dL (40-59) 11/22/18 20:11 Cholesterol/HDL Ratio 2.62 % 11/22/18 20:11 Lipase 20 units/L (13-60) 11/22/18 16:27 Active Medications - Current Medications Current Medications: Generic Name Dose Route Start Last Admin Trade Name Freq PRN Reason Stop Dose Admin Acetaminophen 650 mg 11/22/18 19:49 11/22/18 22:23 Tylenol PO 650 mg Q4H PRN Administration Pain MILD(1-3)/Fever >100.5/NGUYEN Al Hydrox/Mg Hydrox/Simethicone 30 ml 11/22/18 19:49 Alum-Mag Hydrox-Simeth 445-283-43tq/5ml PO Q4H PRN Indigestion Amlodipine Besylate 5 mg 11/23/18 10:00 Norvasc PO QDAY MENDOZA Aspirin 325 mg 11/23/18 10:00 Ecotrin PO QDAY MENDOZA Famotidine 20 mg 11/22/18 22:00 11/22/18 22:05 Pepcid IV Not Given BID MENDOZA Hydralazine HCl 10 mg 11/22/18 19:49 Apresoline IV Q6HR PRN FOR SBP > target Hydrochlorothiazide 25 mg 11/23/18 10:00 Hctz PO QDAY MENDOZA Morphine Sulfate 2 mg 11/22/18 19:49 11/23/18 05:00 Morphine IV 2 mg Q4H PRN Administration Pain, Moderate (4-6) Nitroglycerin 0.4 mg 11/22/18 18:27 11/23/18 05:22 Nitrostat SL 0.4 mg .Q5MIN PRN Administration Chest Pain Ondansetron HCl 4 mg 11/22/18 19:49 Zofran IV Q8H PRN Nausea And Vomiting Oxycodone/Acetaminophen 1 tab 11/22/18 19:49 Percocet 5/325 PO Q6H PRN Pain, Moderate (4-6) Senna 8.6 mg 11/22/18 22:00 11/22/18 22:04 Senokot PO Not Given Q12HR MENDOZA Sodium Chloride 10 ml 11/22/18 22:00 11/22/18 22:24 Sodium Chloride Flush Syringe 10 Ml IV 10 ml BID MENDOZA Administration Sodium Chloride 10 ml 11/22/18 19:49 Sodium Chloride Flush Syringe 10 Ml IV PRN PRN LINE FLUSH Sodium Chloride 10 ml 11/22/18 19:49 Sodium Chloride Flush Syringe 10 Ml IV PRN PRN LINE FLUSH
[2018-11-23] MEDS: TYLENOL PO PRN (10:54)
[2018-11-23] MEDS: ECOTRIN PO SCH (10:55)
[2018-11-23] MEDS: PEPCID IV SCH ×2 (10:55→21:34)
[2018-11-23] MEDS: NORVASC PO SCH (10:55)
[2018-11-23] MEDS: SENOKOT PO SCH ×2 (10:55→21:34)
[2018-11-23] MEDS: HCTZ PO SCH (10:55)
[2018-11-23] MEDS: SODIUM CHLORIDE FLUSH SYRINGE 10 ML IV SCH (21:34)
[2018-11-24] MEDS ORDERED: LEXISCAN IV ONE ×2 (08:18→08:20)
[2018-11-24] MEDS: ECOTRIN PO SCH (11:19)
[2018-11-24] MEDS: NORVASC PO SCH (11:19)
[2018-11-24] MEDS: SENOKOT PO SCH (11:19)
[2018-11-24] MEDS: PEPCID IV SCH (11:20)
[2018-11-24] MEDS: SODIUM CHLORIDE FLUSH SYRINGE 10 ML IV SCH (11:20)
[2018-11-24] MEDS: HCTZ PO SCH (11:20)
[2018-11-24 12:50] VITALS: BP 109/69
--- NOTE | 2018-11-24 13:27 | Discharge Summary ---
Providers - Providers Date of Admission: 11/22/18 19:49 Date of discharge: 11/24/18 Attending physician: CINTHYA FRANK 11/22/18 Consult to Cardiac Rehabilitation [CONS] Routine Reason For Exam: Phase I Primary care physician: MAURI STEVENSON MD Hospitalization Condition: Good Pertinent studies: Stress thallium unremarkable. Hospital course: Patient 53 years old presented with atypical chest pain. She was ruled out via cardiac isoenzymes. Echocardiogram unremarkable stress thallium negative. Patient is stable for discharge. Continue chronic medical management. Disposition: - TO HOME OR SELFCARE - Discharge Diagnoses (1) Chest pain Status: Acute Qualifiers: Chest pain type: unspecified Qualified Code(s): R07.9 - Chest pain, unspecified Comment: Noncardiac chest pain. Workup negative. Follow-up with cardiology as outpatient. (2) Hypertension Status: Acute Qualifiers: Hypertension type: unspecified Qualified Code(s): I10 - Essential (primary) hypertension Comment: Uncontrolled hypertension. Continue amlodipine 5 mg and hydralazine. Core Measure Documentation - Palliative Care Palliative Care/ Comfort Measures: Not Applicable - Core Measures Any of the following diagnoses?: none Exam - Constitutional Vitals: Temp Pulse Resp BP Pulse Ox 98.1 F 65 19 109/69 100 11/24/18 04:25 11/24/18 11:44 11/24/18 10:00 11/24/18 11:44 11/24/18 11:44 General appearance: Present: no acute distress, well-nourished - EENT Eyes: Present: PERRL ENT: hearing intact, clear oral mucosa - Neck Neck: Present: supple, normal ROM - Respiratory Respiratory effort: normal Respiratory: bilateral: CTA - Cardiovascular Heart Sounds: Present: S1 & S2. Absent: rub, click - Extremities Extremities: pulses symmetrical, No edema Peripheral Pulses: within normal limits - Abdominal General gastrointestinal: Present: soft, non-tender, non-distended, normal bowel sounds Female genitourinary: Present: normal - Integumentary Integumentary: Present: clear, warm, dry - Musculoskeletal Musculoskeletal: gait normal, strength equal bilaterally - Psychiatric Psychiatric: appropriate mood/affect, intact judgment & insight - Neurologic Neurologic: CNII-XII intact, moves all extremities Plan Activity: no restrictions Weight Bearing Status: Full Weight Bearing Diet: low fat Follow up with: MAURI STEVENSON MD [Primary Care Provider] - 3-5 Days Prescriptions: amLODIPine [Norvasc] 5 mg PO QDAY tablet
--- NOTE | 2018-11-25 02:15 | Treadmill Report ---
NUCLEAR STRESS TEST REPORT The patient is brought to the Cardiology lab and a nuclear stress test is performed after administering Lexiscan. The patient tolerated the procedure well. Post-stress images reveal fairly homogeneous distribution of the isotope with no significant reversible defects to indicate ischemia. Accompanying gated study shows good systolic function with no significant wall motion abnormalities. IMPRESSION: 1. The patient tolerated Lexiscan administration well. Minimal anterior abnormalities with mild reversibility probably not clinically significant. Overall, left ventricular function is normal. No large areas of ischemia noted. Calculated ejection fraction is noted to be 62%. 2. Suggest clinical correlation. JOB# [id number] SHIV/NTS
== END 2018-11-24 14:48 | disposition home or self-care (01) ==
LOC: ED 16:12 → 4A 19:49
PROVIDERS: ADMIT Internal Medicine; ATTEND Internal Medicine
DX: R07.89 Other chest pain (principal); I10 Essential (primary) hypertension; K50.90 Crohn's disease, unspecified, without complications; K21.9 Gastro-esophageal reflux disease without esophagitis; Z79.82 Long term (current) use of aspirin; Z79.899 Other long term (current) drug therapy; Z90.49 Acquired absence of other specified parts of digestive tract; Z90.89 Acquired absence of other organs; Z90.710 Acquired absence of both cervix and uterus
CPT/HCPCS: 36415; 71046; 78452; 80053; 80061; 82550; 82553; 83036; 83690; 83880; 84484; 85025; 93005; 93010; 93017; 96374; 96375; 96376; 99284; A9502; G0378; J2270; J2405; J2785

== ENCOUNTER 2019-08-18 22:25 | Emergency (ER) | payer MEDICARE ==
[2019-08-18 23:07] VITALS: BP 149/91
[2019-08-19 00:09] LABS: Basophils # (Auto) 0.2 K/mm3 (0.0-0.1); Basophils % (Auto) 1.3 % (0.0-1.8); Eosinophils # (Auto) 0.2 K/mm3 (0.0-0.4); Eosinophils % (Auto) 1.7 % (0.0-4.3); Hematocrit 37.7 % (30.3-42.9); Hemoglobin 12.3 gm/dl (10.1-14.3); Lymphocytes # (Auto) 4.2 K/mm3 (1.2-5.4); Lymphocytes % (Auto) 34.7 % (13.4-35.0); Mean Corpuscular HGB Conc 33 % (30-34); Mean Corpuscular Volume 85 fl (79-97); Monocytes % (Auto) 8.1 % (0.0-7.3); Platelet Count 328 K/mm3 (140-440); Red Blood Count 4.42 M/mm3 (3.65-5.03); Red Cell Distribution Width 14.4 % (13.2-15.2)
[2019-08-19 00:18] LABS: INR 0.87 (0.87-1.13); Partial Thromboplastin Time 25.6 Sec. (24.2-36.6)
[2019-08-19 00:30] LABS: BUN/Creatinine Ratio 19; Blood Urea Nitrogen 17 mg/dL (7-17); Calcium 9.1 mg/dL (8.4-10.2); Hemolysis Index 8
--- NOTE | 2019-08-19 02:22 | Cat Scan Report ---
CT HEAD WITHOUT CONTRAST INDICATION: Facial Numbness with RIGHT upper extremity numbness. TECHNIQUE: Axial slices were obtained through the head. Coronal and sagittal reformatted images were obtained. COMPARISON: None available. FINDINGS: There is no intracranial hemorrhage or extra-axial fluid collection. Ventricles, basilar cisterns, an d sulci appear within normal limits for age. There is no mass lesion or midline shift. No acute hamilton torial infarct is identified. Bone windows demonstrate no acute osseous abnormality. Paranasal sinuses and mastoid air cells appear clear. TECHNIQUE: All CT scans at this facility use dose modulation, iterative reconstruction, automated ex posure control, weight based dosing, when appropriate, to reduce radiation dose to as low as reasonab ly achievable. IMPRESSION: 1. No acute intracranial abnormality. Signer Name: Adan Mcfadden MD Signed: 08/19/2019 2:17 AM Workstation Name: [id number][id number]
[2019-08-19] MEDS ORDERED: dexAMETHasone 20 MG/5 ML VIAL IM ONE (02:30)
[2019-08-19] MEDS ORDERED: KETOROLAC 30 MG/1 ML INJ IM ONE (02:30)
--- NOTE | 2019-08-19 03:25 | Emergency Department Report ---
Upper Extremity - [facility] Chief Complaint: Extremity Injury, Upper Stated Complaint: NUMBNESS TINGLING TOP LIP/RT ARM Time Seen by Provider: 08/19/19 00:51 ED Review of Systems ROS: Stated complaint: NUMBNESS TINGLING TOP LIP/RT ARM Other details as noted in HPI ED Past Medical Hx - Past Medical History Previous Medical History?: Yes Hx Hypertension: Yes Hx GERD: Yes Additional medical history: CROHNS - Surgical History Past Surgical History?: Yes Hx Cholecystectomy: Yes (1986) Hx Appendectomy: Yes Additional Surgical History: Partial hysterectomy 2004. Exploratory laparotomy for Crohn's 1987. CERVICAL FUSION 2001 - Social History Smoking Status: Never Smoker Substance Use Type: None - Medications Home Medications: Home Medications Medication Instructions Recorded Confirmed Last Taken Type Clonidine HCl [Kapvay] 0.1 mg PO BID #60 tab.er.12h 12/18/17 11/22/18 Unknown Rx amLODIPine 5 mg PO QDAY tablet 11/24/[address] (Nf) 50 mg PO TID PRN #30 tab 08/19/19 Unknown Rx Menthol/Camphor [Sultan Wynona 1 applicatio TP QID PRN #1 tube 08/19/19 Unknown Rx Ointment] methOCARBAMOL [Robaxin TAB] 500 mg PO Q8H PRN #30 tablet 08/19/19 Unknown Rx Upper Extremity Exam - Exam General: Vital signs noted. No distress. Alert and acting appropriately. ED Course Vital Signs 08/18/19 08/19/19 23:05 02:40 Temperature 98.4 F Pulse Rate 93 H Respiratory 18 18 Rate Blood Pressure 149/91 O2 Sat by Pulse 96 Oximetry ED Medical Decision Making - Lab Data Result diagrams: 08/18/19 23:23 08/18/19 23:23 Critical care attestation.: If time is entered above; I have spent that time in minutes in the direct care of this critically ill patient, excluding procedure time. ED Disposition Clinical Impression: Radicular pain in right arm Disposition: - TO HOME OR SELFCARE Is pt being admited?: No Does the pt Need Aspirin: No Condition: Stable Instructions: Cervical Radiculopathy (ED), Chronic Pain (ED) Additional Instructions: follow up with your [facility] Doctor tomorrow Prescriptions: Diclofenac Dr (Nf) 50 mg PO TID PRN #30 tab PRN Reason: pain methOCARBAMOL [Robaxin TAB] 500 mg PO Q8H PRN #30 tablet PRN Reason: muscle spasm Menthol/Camphor [Sultan Wynona Ointment] 1 applicatio TP QID PRN #1 tube PRN Reason: Pain , Severe (7-10) Referrals: ANAT GUNTER [Other] - 3-5 Days Forms: Work/School Release Form(ED)
== END 2019-08-19 03:15 | disposition left against medical advice (07) ==
LOC: ED 22:25
DX: M79.601 Pain in right arm (principal); R20.0 Anesthesia of skin; I10 Essential (primary) hypertension; K21.9 Gastro-esophageal reflux disease without esophagitis; Z90.89 Acquired absence of other organs; Z90.49 Acquired absence of other specified parts of digestive tract; Z90.711 Acquired absence of uterus with remaining cervical stump; Z98.890 Other specified postprocedural states; Z79.899 Other long term (current) drug therapy; Z88.8 Allergy status to other drugs, medicaments and biological substances
CPT/HCPCS: 36415; 70450; 80048; 84484; 85025; 85610; 85670; 85730; 96372; 99284; J1100; J1885